=== PATIENT | female | born 2000 | race Caucasian/White ===

== ENCOUNTER 2021-02-20 18:21 | Emergency (ER) | payer SELFPAY ==
[~2021-02-20] VITALS: Ht 160 cm; Wt 54.0 kg
[2021-02-20] MEDS ORDERED: ORPHENADRINE CITRATE 60 MG/2 ML VIAL. IM ONE (19:30)
[2021-02-20] MEDS ORDERED: KETOROLAC 30 MG/ML VIAL. IM ONE (19:30)
[2021-02-20] MEDS ORDERED: NAPR-514 PO (20:38)
[2021-02-20] MEDS ORDERED: CYCL10TA2 PO (20:38)
--- NOTE | 2021-02-20 20:38 | ED.ADGEN ---
Past Medical History Past Medical History: Migraines Past Surgical History: No Surgical History Smoking Status: Never Smoker Alcohol Use: None General Adult EDM: Chief Complaint: NECK PAIN HPI: HPI: Patient is a 20 year old female who presents emergency department with complaints of pain in the left side of her neck that radiates to her left shoulder for the last 3 days. Patient states that she felt something pull in the left side of her neck 3 days ago. She denies any numbness, tingling, or weakness of her extremities. She states she is not able to turn her head to the right due to the pain. She states that earlier the pain was so severe she actually vomited. She denies any abdominal pain, diarrhea, fever, headache, sore throat, cough, shortness of breath, chest pain, recurrent nausea. She currently rates the pain a 7 out of 10 on the pain scale. She denies any alleviating factors, the pain is worse with movement and palpation. Patient denies any concerns of . Review of Systems: Review of Systems: Complete ROS is negative unless otherwise noted in HPI. Current Medications: Current Medications Medications (Trade) Dose Ordered Sig/Marija Start Time Stop Time Status Last Admin Dose Admin Ketorolac Tromethamine (Toradol 30mg Vial) 30 mg 1X ONCE 02/20/21 19:30 02/20/21 19:31 DC 02/20/21 19:58 30 MG Orphenadrine Citrate (Norflex) 60 mg 1X ONCE 02/20/21 19:30 02/20/21 19:31 DC 02/20/21 19:57 60 MG Allergies: Allergies: Allergies Coded Allergies Type Severity Reaction Last Updated Verified No Known Drug Allergies 02/20/21 No Physical Exam: PE: See Above Constitutional: Well developed, well nourished, no acute distress, non-toxic appearance. [] HENT: Normocephalic, atraumatic, bilateral external ears normal, nose normal. [] Eyes: PERRLA, EOMI, conjunctiva normal, no discharge. [] Neck: Limited range of motion due to pain, no stridor, left paraspinal cervical tenderness to palpation, radiates to left shoulder Cardiovascular:Heart rate regular rhythm Lungs & Thorax: Respirations even and unlabored, no retractions, no respiratory distress Skin: Warm, dry, no erythema, no rash. [] Extremities: No cyanosis, ROM intact, no edema. [] Neurologic: Alert and oriented X 3, normal sensory, no focal deficits noted. [] Psychologic: Affect normal, judgement normal, mood normal. [] Current Patient Data: Labs: Laboratory Tests Test 02/20/21 19:32 POC Urine HCG, Qualitative Hcg negative (Negative) Vital Signs: Vital Signs Date Time Temp Pulse Resp B/P (MAP) Pulse Ox O2 Delivery O2 Flow Rate FiO2 02/20/21 19:02 98.3 98.3 EKG: EKG: [] Heart Score: C/O Chest Pain: No Risk Scores: Score 0 - 3: 2.5% MACE over next 6 weeks - Discharge Home Score 4 - 6: 20.3% MACE over next 6 weeks - Admit for Clinical Observation Score 7 - 10: 72.7% MACE over next 6 weeks - Early Invasive Strategies Radiology/Procedures: Radiology/Procedures: [] Course & Med Decision Making: Course & Med Decision Making Pertinent Labs and Imaging studies reviewed. (See chart for details) 20-year-old female presents emergency department with complaints of neck pain for the last 3 days. Patient was given orphenadrine and Toradol in the emergency department. She reported feeling better after the pain medications were given. Prescription was written for Flexeril and naproxen. Patient encouraged to follow-up with her primary care doctor in 1 to 2 days, return to the ER if symptoms worsen. Patient verbalized an understanding of home care, medications, follow-up, and return to ED instructions and was in agreement with the plan of care. [] Kellyon Disclaimer: Dragon Disclaimer: This electronic medical record was generated, in whole or in part, using a voice recognition dictation system. Departure Departure Impression: Primary Impression: Strain of cervical portion of left trapezius muscle Disposition: HOME / SELF CARE / HOMELESS Condition: STABLE Referrals: NO PCP (PCP) Patient Instructions: Cervical Strain and Sprain with [facility] Additional Instructions: Fill the prescription(s) and use as directed. Apply heat or ice for to sore areas as needed for comfort. Activity as tolerated. Follow up with your primary care doctor this week if symptoms persist, return to the ER if symptoms worsen or you develop a fever. Scripts Naproxen (NAPROXEN) 500 Mg Tablet 1 TAB PO BID PRN for PAIN for 10 Days, #20 TAB 0 Refills Prov: BOGUSLAW,MARILIA D THERAPIST ASST 02/20/21 Cyclobenzaprine Hcl (CYCLOBENZAPRINE HCL) 10 Mg Tablet 1 TAB PO TID PRN for MUSCLE PAIN for 10 Days, #30 TAB 0 Refills Prov: MARILIA TAYLOR APRN 02/20/21 MARILIA TAYLOR APRN February 20, 2021 20:38
== END 2021-02-20 20:45 | disposition home or self-care (01) ==
LOC: ER 18:21
DX: S16.1XXA Strain of muscle, fascia and tendon at neck level, initial encounter (principal); G43.909 Migraine, unspecified, not intractable, without status migrainosus; X58.XXXA Exposure to other specified factors, initial encounter; Y93.89 Activity, other specified; Y92.89 Other specified places as the place of occurrence of the external cause; Y99.8 Other external cause status
CPT/HCPCS: 81025; 96372; 99284; J1885; J2360

== ENCOUNTER 2021-03-21 20:26 | Emergency (ER) | payer SELFPAY ==
[~2021-03-21] VITALS: Ht 160 cm; Wt 54.5 kg
[~2021-03-21 20:26] MED LIST: CYCL10TA2 PO; NAPR-514 PO
[2021-03-21] MEDS ORDERED: IV NORMAL SALINE 1000ML BAG 1,000 ML IV SCH (22:15)
--- NOTE | 2021-03-21 22:26 | PHYS DOC ---
Past Medical History Past Medical History: Migraines (PAMELA HANSEN EMBEDDED LINUX DEVELOPER) Past Surgical History: No Surgical History (PAMELA HANSEN EMBEDDED LINUX DEVELOPER) Smoking Status: Never Smoker Alcohol Use: None (PAMELA HANSEN EMBEDDED LINUX DEVELOPER) General Adult EDM: Chief Complaint: ABDOMINAL PAIN HPI: HPI: Patient is a 20 year old female who presents with states last couple days she has had vaginal bleeding. She states yesterday it was just spotting. She states today it was like a period. She states that she is not supposed to be on her menstrual cycle right now. She denies any concern for sexual transmitted disease. She denies any abnormal vaginal discharge besides having vaginal bleeding at this time. She states when she ate today she had a sharp shooting pain across her mid abdomen. She states that she is right the pain at a 5 out of 10. She denies fever, diarrhea, nausea, vomiting, urinary symptoms, concern for STD, back pain, dizziness, headache. She states her only history is migraines and she takes no medication daily. (PAMELA HANSEN EMBEDDED LINUX DEVELOPER) Review of Systems: Review of Systems: Constitutional: Denies fever or chills. [] Eyes: Denies change in visual acuity. [] HENT: Denies nasal congestion or sore throat. [] Respiratory: Denies cough or shortness of breath. [] Cardiovascular: Denies chest pain or edema. [] GI: + abdominal pain, denies nausea, vomiting, bloody stools or diarrhea. [] : Denies dysuria. + Vaginal bleeding [] Musculoskeletal: Denies back pain or joint pain. [] Integument: Denies rash. [] Neurologic: Denies headache, focal weakness or sensory changes. [] Endocrine: Denies polyuria or polydipsia. [] Lymphatic: Denies swollen glands. [] Psychiatric: Denies depression or anxiety. [] (PAMELA HANSEN EMBEDDED LINUX DEVELOPER) Heart Score: C/O Chest Pain: No Risk Factors: Risk Factors: DM, Current or recent (<one month) smoker, HTN, HLP, family history of CAD, obesity. Risk Scores: Score 0 - 3: 2.5% MACE over next 6 weeks - Discharge Home Score 4 - 6: 20.3% MACE over next 6 weeks - Admit for Clinical Observation Score 7 - 10: 72.7% MACE over next 6 weeks - Early Invasive Strategies (PAMELA HANSEN APRN) Current Medications: Current Medications Medications (Trade) Dose Ordered Sig/Marija Start Time Stop Time Status Last Admin Dose Admin Sodium Chloride 1,000 ml @ 1,000 mls/hr Q1H 03/21/21 22:15 03/21/21 23:14 UNV (PAMELA HANSEN APRN) Allergies: Allergies: Allergies Coded Allergies Type Severity Reaction Last Updated Verified No Known Drug Allergies 02/20/21 No (PAMELA HANSEN APRN) Physical Exam: PE: Constitutional: Well developed, well nourished, no acute distress, non-toxic appearance. [] HENT: Normocephalic, atraumatic, bilateral external ears normal, oropharynx moist, no oral exudates, nose normal. [] Eyes: PERRLA, EOMI, conjunctiva normal, no discharge. [] Neck: Normal range of motion, no tenderness, supple, no stridor. [] Cardiovascular:Heart rate regular rhythm, no murmur [] Lungs & Thorax: Bilateral breath sounds clear to auscultation [] Abdomen: Bowel sounds normal, soft, no tenderness, no masses, no pulsatile masses. [] Skin: Warm, dry, no erythema, no rash. [] Back: No tenderness, no CVA tenderness. [] Extremities: No tenderness, no cyanosis, no clubbing, ROM intact, no edema. [] Neurologic: Alert and oriented X 3, normal motor function, normal sensory function, no focal deficits noted. [] Psychologic: Affect normal, judgement normal, mood normal. [] Normal physical exam (PAMELA HANSEN APRN) Current Patient Data: Labs: Laboratory Tests Test 03/21/21 20:43 POC Urine HCG, Qualitative Hcg negative (Negative) (PAMELA HANSEN APRN) EKG: EKG: [] (PAMELA HANSEN APRN) Radiology/Procedures: Radiology/Procedures: [] (PAMELA HANSEN APRN) Radiology/Procedures: IMAGING REPORT Signed PATIENT: NAINA NUNEZACCOUNT: [id number] : 2000 LOCATION: ER AGE: 20 SEX: F EXAM STATUS: REG ER ORD. PHYSICIAN: PAMELA HANSEN APRN REASON: VAGINAL BLEEDING PROCEDURE: PELVIS W/TV EXAM: ULTRASOUND PELVIS INDICATION: Reason: VAGINAL BLEEDING / Spl. Instructions: / History: . COMPARISON: None available. TECHNIQUE: Transabdominal and transvaginal sonography was performed. FINDINGS: The uterus measures 7.1 x 4.4 x 3.0 cm. The endometrium measures 0.5 cm. There is no focal myometrial abnormality The right ovary is not seen. The left ovary measures 2.1 x 2.7 x 2.1 cm. Vascular flow identified within the left ovary There is no free fluid. IMPRESSION: Right ovary not visualized. Normal sonographic appearance of the uterus and left ovary. Electronically signed by: Anjana Sanchez MD (03/22/2021 12:04 AM) [facility] DICTATED and SIGNED BY: ANJANA SANCHEZ MD DATE: 03/22/21 [id number] (ROCK CANALES DO) Course & Med Decision Making: Course & Med Decision Making Pertinent Labs and Imaging studies reviewed. (See chart for details) See HPI. Alert and oriented x4. Ambulatory with steady gait. Skin pink warm and dry. Abdomen is soft and nontender. Speaks in full clear sentences. No CVA tenderness. Afebrile. 2249: Urinalysis shows no infection. Blood work is unremarkable. Ultrasound pending. Patient signed over to Dr. Canales. [] (PAMELA HANSEN APRN) Course & Med Decision Making Concern for menorrhagia. Labs unremarkable, urinalysis with blood consistent with active menses. Patient states she is only used 2 tampons per day. No heavy brisk flow. Patient hemodynamically stable and reports pain has improved with analgesia in ED. will discharge home with strict ED return precautions were given for brisk bleeding, syncope, chest pain, exertional dyspnea pain. Encouraged urgent outpatient follow-up with PMD and SOCIAL SCIENCES DEPARTMENT CHAIR for definitive management. Life-threatening processes were considered but are low suspicion at this time, given history, physical exam and ED workup. Pt was educated on all prescription medications and adverse effects. All patient's questions were answered and pt was stable at time of discharge. Life/limb-threatening differential includes but is not limited to, aortic dissection, aortic aneurysm, acute coronary syndrome, surgical abdomen (appendicitis, cholecystitis, ischemic bowel, strangulated hernia, etc), bowel obstruction or volvulus, bladder outlet obstruction, gastrointestinal bleeding, inflammatory bowel disease, peptic ulcer disease, ACS/CAD, sepsis, diverticular disease, ureterolithiasis, nephrolithiasis, ovarian or testicular torsion, ectopic , vaginal hemorrhage, or genitourinary infection. I spoken with the patient and her caregivers. I explained the patient's condition, diagnoses and treatment plan based on the information available to me at this time. I have answered the patient and her caregiver's questions and addressed any concerns. The patient and her caregivers have a good understan ding of patient's diagnosis, condition and treatment plan as can be expected at this point. Vital signs have been stable. Patient's condition is stable and appropriate for discharge from the emergency department. Patient will pursue further outpatient evaluation with primary care physician or other designated or consulting physician as outlined in the discharge instructions. The patient and/or caregivers are agreeable to this plan of care and follow-up instructions have been explained in detail. The patient and/or caregivers have received these instructions in written form and have expressed an understanding of the discharge instructions. The patient and/or caregivers are aware that any significant change of condition or worsening of symptoms should prompt immediate return to this or the closest emergency department or call to 911. (ROCK PALACIOS DO) Dragon Disclaimer: Dragon Disclaimer: This electronic medical record was generated, in whole or in part, using a voice recognition dictation system. (PAMELA HANSEN EMBEDDED LINUX DEVELOPER) Departure Departure Impression: Primary Impression: Abnormal uterine bleeding (AUB) Disposition: HOME / SELF CARE / HOMELESS Condition: STABLE Referrals: NO PCP (PCP) Follow-up for routine care with FOLLOW UP WITH FAMILY MEDICINE: [address], [address] [place] [address] Patient Instructions: Abnormal Uterine Bleeding Additional Instructions: FOLLOW UP WITH SOCIAL SCIENCES DEPARTMENT CHAIR: FOR DEFINITIVE MANAGEMENT OF ABNORMAL MENSES [facility] [address], [address] [place] [address] EMERGENCY DEPARTMENT GENERAL DISCHARGE INSTRUCTIONS Thank you for coming to [facility] Emergency Department (ED) today and trusting us with you care. We trust that you had a positive experience in our Emergency Department. If you wish to speak to the department management, you may call the Director at [phone]. YOUR FOLLOW UP INSTRUCTIONS ARE FOLLOWS: 1. Do you have a private Doctor? If you do not have a private doctor, please ask for a resource list of physicians or clinics that may be able to assist you with follow up care. 2. The Emergency Physicain has interpreted your x-rays. The X-Ray specialist will also review them. If there is a change in the findings, you will be notified in 48 hours when at all possible. 3. A lab test or culture has been done, your results will be reviewed and you will be notified if you need a change in treatment. ADDITIONAL INSTRUCTIONS AND INFORMATION: 1. Your care today has been supervised by a physician who is specially trained in emergency care. Many problems require more than one evaluation for a complete diagnosis and treatment. We recommend that you schedule your follow up appointment as recommended to ensure complete treatment of you illness or injury. If you are unable to obtain follow up care and continue to have a problem, or if your condition worsens, we recommend that you return to the ED. 2. We are not able to safely determine your condition over the phone nor are we able to give sound medical advice over the phone. For these safety reasons, if you call for medical advice we will ask you to come to the ED for further evaluation. 3. If you have any questions regarding these discharge instructions please call the ED at [phone]. SAFETY INFORMATION: In the interest of safety, wellness, and injury prevention; we encourage you to wear your sealbelt, if you smoke; quite smoking, and we encourage family to use a protective helmet for bicycling and other sporting events that present an increased risk for head injury. IF YOUR SYMPTOMS WORSEN OR NEW SYMPTOMS DEVELOP, OR YOU HAVE CONCERNS ABOUT YOUR CONDITION; OR IF YOUR CONDITION WORSENS WHILE YOU ARE WAITING FOR YOUR FOLLOW UP APPOINTMENT; EITHER CONTACT YOUR PRIMARY CARE DOCTOR, THE PHYSICIAN WHOSE NAME AND NUMBER YOU WERE GIVEN, OR RETURN TO THE ED IMMEDIATELY. PAMELA HANSEN APRN Mar 21, 2021 22:26 ROCK CANALES DO Mar 22, 2021 03:09
[2021-03-21 22:29] LABS: BASO # 0.1 x10^3/uL (0.0-0.2); BASO % 1 % (0-3); EOS # 0.2 x10^3/uL (0.0-0.7); EOS % 3 % (0-3); HEMATOCRIT 41.7 % (36.0-47.0); HEMOGLOBIN 14.2 g/dL (12.0-15.5); LYMPH # 2.8 x10^3/uL (1.0-4.8); LYMPH % 35 % (24-48); MEAN CORPUSCULAR HEMOGLOBIN 29 pg (25-35); MEAN CORPUSCULAR HGB CONC 34 g/dL (31-37); MEAN CORPUSCULAR VOLUME 85 fL (79-100); MONO # 0.5 x10^3/uL (0.0-1.1); MONO % 6 % (0-9); NEUT # 4.5 x10^3/uL (1.8-7.7); NEUT % 56 % (31-73); PLATELET COUNT 277 x10^3/uL (140-400); RED CELL DISTRIBUTION WIDTH 12.8 % (11.5-14.5); WHITE BLOOD COUNT 8.1 x10^3/uL (4.0-11.0)
[2021-03-21 22:33] LABS: BILIRUBIN,URINE NEGATIVE (NEG); CLARITY,URINE CLEAR; COLOR,URINE YELLOW; NITRITE,URINE NEGATIVE (NEG); PROTEIN,URINE NEGATIVE (NEG-TRACE); UROBILINOGEN,URINE 0.2 mg/dL (0.2 mg/dL)
[2021-03-21 22:39] LABS: CREATININE 0.8 mg/dL (0.6-1.0); GFR 89.7; POTASSIUM 3.5 mmol/L (3.5-5.1)
[2021-03-21 22:40] LABS: BACTERIA,URINE FEW /HPF (0-FEW); WBC,URINE OCC /HPF (0-4)
[2021-03-21 22:45] LABS: ALBUMIN 4.6 g/dL (3.4-5.0); ALBUMIN/GLOBULIN RATIO 1.3 (1.0-1.7); TOTAL BILIRUBIN 0.6 mg/dL (0.2-1.0); TOTAL PROTEIN 8.1 g/dL (6.4-8.2)
[2021-03-21] MEDS ORDERED: fentaNYL PF VIAL 100 MCG/2 ML VIAL IVP ONE (23:00)
[2021-03-21] MEDS ORDERED: FAMOTIDINE 20 MG/2 ML VIAL IVP ONE (23:00)
--- NOTE | 2021-03-22 00:07 | RAD ---
EXAM: ULTRASOUND PELVIS INDICATION: Reason: VAGINAL BLEEDING / Spl. Instructions: / History: . COMPARISON: None available. TECHNIQUE: Transabdominal and transvaginal sonography was performed. FINDINGS: The uterus measures 7.1 x 4.4 x 3.0 cm. The endometrium measures 0.5 cm. There is no focal myometria l abnormality The right ovary is not seen. The left ovary measures 2.1 x 2.7 x 2.1 cm. Vascular flow identified within the left ovary There is no free fluid. IMPRESSION: Right ovary not visualized. Normal sonographic appearance of the uterus and left ovary. Electronically signed by: Anjana Brooke MD (03/22/2021 12:04 AM) [facility]
[2021-03-22 00:50] VITALS: BP 113/74
== END 2021-03-22 03:29 | disposition home or self-care (01) ==
LOC: ER 20:26
DX: N93.9 Abnormal uterine and vaginal bleeding, unspecified (principal); G43.909 Migraine, unspecified, not intractable, without status migrainosus
CPT/HCPCS: 36415; 76830; 76856; 80053; 81001; 81025; 83690; 85025; 96361; 96374; 96375; 99285; J3010; J3490; J7030